=== PATIENT | female | born 1950 | race American Indian/Alaskan Native ===

== ENCOUNTER 2016-10-17 09:41 | Outpatient (CLI) | payer MEDICARE ==
--- NOTE | 2016-10-17 12:28 | Cat Scan Report ---
CT chest without contrast: Pulmonary cyst/nodule. Transverse images are obtained through the chest with coronal and sagittal 2-D reformatted images. We have no prior exams at our facility for comparison. There are numerous cysts throughout all pulmonary lobes bilaterally. The largest cyst on the left is in the upper lobe measuring 4.9 cm. The largest cyst on the right which is somewhat septated is in the lower lobe measuring 8.6 cm. No pulmonary nodules and no pleural disease is identified. The central airways are patent but the stanton are calcified. No significant hilar or mediastinal adenopathy present. No abnormal findings in the several sections throughout the upper abdomen. The bones do appear osteoporotic but not otherwise remarkable for age. Impression: Diffuse pulmonary cystic disease.
== END 2016-10-17 09:42 | disposition home or self-care (01) ==
LOC: SPVIMAG 09:41
PROVIDERS: ATTEND Specialist
DX: J98.4 Other disorders of lung (principal); R91.1 Solitary pulmonary nodule
CPT/HCPCS: 71250